=== PATIENT | male | born 1995 | race Caucasian/White ===

== ENCOUNTER 2020-05-18 01:02 | Emergency (ER) | payer OTHER ==
[~2020-05-18] VITALS: Ht 188 cm; Wt 93.0 kg
[2020-05-18] MEDS ORDERED: LIDOCAINE HCL 1% 20 ML VIAL IJ ONE (01:45)
--- NOTE | 2020-05-18 02:25 | NUR ---
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
[2020-05-18] MEDS ORDERED: SULF1TAB48 PO (02:29)
[2020-05-18 02:39] VITALS: BP 130/75
--- NOTE | 2020-05-18 02:39 | NUR ---
Patient discharged to home in stable condition. Written and verbal after care instructions given. Patient verbalizes understanding of instructions. Stressed follow up or return to ER for worsening s/s.
== END 2020-05-18 02:40 | disposition home or self-care (01) ==
LOC: ER 01:17
DX: L02.215 Cutaneous abscess of perineum (principal); F17.290 Nicotine dependence, other tobacco product, uncomplicated; R03.0 Elevated blood-pressure reading, without diagnosis of hypertension
CPT/HCPCS: 10060; 99283; J3490; A4663

== ENCOUNTER 2020-05-19 12:46 | Emergency (ER) | payer OTHER ==
[~2020-05-19] VITALS: Ht 188 cm; Wt 93.0 kg
[~2020-05-19 12:46] MED LIST: SULF1TAB48 PO
[2020-05-19] MEDS ORDERED: CIPROFLOXACIN IV 400 MG in PREMIXED 1 EACH IV ONE (13:15)
[2020-05-19] MEDS ORDERED: IV NS 1000 ML 1,000 ML IV ONE (13:15)
[2020-05-19] MEDS ORDERED: levoFLOXacin 500 MG/D5W 100ML PIGGYBACK IV ONE (13:15)
[2020-05-19] MEDS ORDERED: levoFLOXacin 500 MG/D5W 100 ML ONE (13:18)
[2020-05-19] MEDS ORDERED: IOHEXOL 300MG/ML 100 ML INFUS..BTL ONE (13:27)
[2020-05-19] MEDS ORDERED: IV NORMAL SALINE 250 ML IV ONE (13:27)
[2020-05-19] MEDS ORDERED: SWABABLE VALVE TRANSFER SET EA MC ONE (13:27)
[2020-05-19 13:30] LABS: BASOPHILS % (AUTO) 0.4 % (0.0-2.0); EOSINOPHILS # (AUTO) 0.2 K/uL (0.0-0.7); EOSINOPHILS % (AUTO) 3.5 % (0.0-7.0); HEMATOCRIT 45.1 % (36.7-47.1); HEMOGLOBIN 14.3 g/dL (12.5-16.3); LYMPHOCYTES # (AUTO) 1.3 K/uL (20.0-40.0); LYMPHOCYTES % (AUTO) 19.8 % (20.5-51.5); MEAN CORPUSCULAR HEMOGLOBIN 27.4 uug (23.8-33.4); MEAN CORPUSCULAR HGB CONC 32 g/dL (32.5-36.3); MEAN CORPUSCULAR VOLUME 86.6 fL (73.0-96.2); MONOCYTES # (AUTO) 0.4 K/uL (2.0-10.0); NEUTROPHILS # (AUTO) 4.5 K/uL (1.8-8.9); NEUTROPHILS % (AUTO) 70.3 % (38.5-71.5); PLATELET COUNT (AUTO) 193 K/uL (152-348); RED BLOOD CELL COUNT(AUTO) 5.21 MIL/uL (4.06-5.63); WHITE BLOOD COUNT (AUTO) 6.4 K/uL (3.6-10.2)
[2020-05-19 13:41] LABS: BILIRUBIN,DIRECT 0.1 mg/dL (0.0-0.2); BILIRUBIN,TOTAL 0.5 mg/dL (0.2-1.0); POTASSIUM 3.9 mmol/L (3.5-5.1); TOTAL PROTEIN, SERUM 7.6 g/dL (6.4-8.2)
--- NOTE | 2020-05-19 14:24 | NUR ---
Patient was moved from ER 2A to ER bed 1A with IV antibiotic therapy in progress. Patient is tolerating IV Levoquin & IV Cipro well
[2020-05-19] MEDS ORDERED: LIDOCAINE HCL 1% 20 ML VIAL ONE (15:05)
--- NOTE | 2020-05-19 15:52 | NUR ---
IV removed. Catheter intact and site benign. Pressure and 4x4 gauze applied to site. No bleeding noted. Patient discharged to home in stable condition. Written and verbal after care instructions given.Patient verbalizes understanding of instructions. Stressed follow up or return to ER for worsening s/s.
[2020-05-19] MEDS ORDERED: LIDOCAINE HCL 1% 20 ML VIAL IJ ONE (16:00)
== END 2020-05-19 16:03 | disposition home or self-care (01) ==
LOC: ER 12:47
DX: Z48.817 Encounter for surgical aftercare following surgery on the skin and subcutaneous tissue (principal); L02.215 Cutaneous abscess of perineum; J45.909 Unspecified asthma, uncomplicated; K57.30 Diverticulosis of large intestine without perforation or abscess without bleeding
CPT/HCPCS: 36415; 72193; 80048; 80076; 85025; 96365; 96367; 99285; J0744; J1956; J3490; Q9967; A4663; J7030; J7050

== ENCOUNTER 2020-05-21 14:28 | Emergency (ER) | payer OTHER ==
[~2020-05-21] VITALS: Ht 188 cm; Wt 93.0 kg
--- NOTE | 2020-05-21 14:38 | NUR ---
at bedside for assessment
--- NOTE | 2020-05-21 14:50 | NUR ---
Packing removed from abcess noted between scrotum and anus
[2020-05-21] MEDS ORDERED: ONDANSETRON ODT 4 MG TAB.RAPDIS ONE (15:53)
[2020-05-21] MEDS ORDERED: LIDOCAINE 1%-EPI 1:100,000 20 ML VIAL IJ ONE (16:30)
[2020-05-21] MEDS ORDERED: ONDANSETRON ODT 4 MG TAB.RAPDIS SL ONE (16:45)
--- NOTE | 2020-05-21 17:00 | NUR ---
Abscess repacked and 4x4 gauze applied to cover
[2020-05-21] MEDS ORDERED: IBUP-1957 PO (17:24)
[2020-05-21] MEDS ORDERED: LIDOCAINE HCL 1% 20 ML VIAL IJ ONE (17:30)
--- NOTE | 2020-05-21 17:31 | NUR ---
Patient discharged to home in stable condition. Able to ambulate with steady gait, Written and verbal after care instructions given. Rx given. Patient verbalizes understanding of instructions. Stressed follow up or return to ER for worsening s/s.
[2020-05-21 17:39] VITALS: BP 136/65
== END 2020-05-21 17:31 | disposition home or self-care (01) ==
LOC: ER 14:30
DX: Z48.817 Encounter for surgical aftercare following surgery on the skin and subcutaneous tissue (principal); L02.215 Cutaneous abscess of perineum; L02.31 Cutaneous abscess of buttock; J45.909 Unspecified asthma, uncomplicated
CPT/HCPCS: 10060; 99283; J3490; A4217; Q0162

== ENCOUNTER 2020-05-23 20:50 | Emergency (ER) | payer SELFPAY ==
[~2020-05-23 20:50] MED LIST changes: +IBUP-1957 PO
--- NOTE | 2020-05-23 22:15 | NUR ---
Patient was called but was not present.
--- NOTE | 2020-05-23 22:30 | NUR ---
Patient was not seen by MARA or courtney.
== END 2020-05-23 23:03 | disposition left against medical advice (07) ==
LOC: ER 20:55
DX: Z53.21 Procedure and treatment not carried out due to patient leaving prior to being seen by health care provider (principal)